=== PATIENT | male | born 1990 | race Caucasian/White ===

== ENCOUNTER 2017-05-02 22:50 | Emergency (ER) | payer SELFPAY ==
[~2017-05-02] VITALS: Ht 190.5 cm; Wt 80.0 kg
[~2017-05-02 22:50] MED LIST: ALPR1CON PO; METH10TA PO
[2017-05-02 22:59] VITALS: BP 167/93; PULSE 103; RESP 18; TEMP 97.8; O2SAT 99
--- NOTE | 2017-05-02 23:03 | PD ---
HPI Chief Complaint: Psychiatric Symptoms Time Seen by Provider: 22:58 Travel History International Travel<30 days: No Contact w/Intl Traveler<30days: No Traveled to known affect area: No History of Present Illness HPI PATIENT WAS AT STORE APPARENTLY STATING THAT HE USED PCP, POLICE WAS CALLED, ONCE POLICE ARRIVED HE WAS BROUGHT IN WITH SUSPICION OF UNDER THE INFLUENCE, HE WAS NOT ABLE TO ANSWER QUESTIONS CORRECTLY AND OFFICER PLACED PT UNDER LEE ACT. PFSH Past Medical History Diminished Hearing: No Musculoskeletal: Yes (HERNIATED DISCS) Past Surgical History Tonsillectomy: Yes (ADNOIDS) Social History Alcohol Use: Yes (2 BEERS PER MONTH MAYBE) Tobacco Use: Yes (ONE PACK PER DAY) Substance Use: Yes ([facility]; Dil[facility]id [facility]) Allergies-Medications (Allergen,Severity, Reaction): Coded Allergies: Penicillin (Verified Allergy, Severe, 05/02/17) Amoxicillin (Unverified Allergy, Mild, 05/02/17) Reported Meds & Prescriptions Reported Meds & Active Scripts Active Reported Wellbutrin Xl 24 HR (Bupropion HCl) 150 Mg Tab 150 Mg PO DAILY Alprazolam 2 Mg Tab 2 Mg PO Q8H PRN Remeron (Mirtazapine) 30 Mg Tab 30 Mg PO HS Review of Systems ROS Limitations: Intoxication Except as stated in HPI: all other systems reviewed are Neg Physical Exam Exam Limitations: Intoxication Narrative GENERAL: SKIN: Warm and dry. HEAD: Atraumatic. Normocephalic. EYES: Pupils equal and round. No scleral icterus. No injection or drainage. ENT: No nasal bleeding or discharge. Mucous membranes pink and moist. NECK: Trachea midline. No JVD. CARDIOVASCULAR: Regular rate and rhythm. RESPIRATORY: No accessory muscle use. Clear to auscultation. Breath sounds equal bilaterally. GASTROINTESTINAL: Abdomen soft, non-tender, nondistended. Hepatic and splenic margins not palpable. MUSCULOSKELETAL: Extremities without clubbing, cyanosis, or edema. No obvious deformities. NEUROLOGICAL: Awake and alert. No obvious cranial nerve deficits. Motor grossly within normal limits. Five out of 5 muscle strength in the arms and legs. Normal speech. GCS 14/15, PT ADMITTED TO USING PCP, STATED THAT HE FEELS BETTER NOW. PSYCHIATRIC: Appropriate mood and affect; insight and judgment normal. Data Data Last Documented VS Vital Signs Date Time Temp Pulse Resp B/P Pulse Ox O2 Delivery O2 Flow Rate FiO2 05/02/17 22:59 97.8 103 18 167/93 99 Room Air Orders Complete Blood Count With Diff (05/02/17 22:58) Basic Metabolic Panel (Bmp) (05/02/17 22:58) Ct Brain W/O Iv Contrast(Rout) (05/02/17 22:58) Drug Screen, Random Urine (05/02/17 22:58) Alcohol (Ethanol) (05/02/17 22:58) Salicylates (Aspirin) (05/02/17 22:58) Tylenol (Acetaminophen) (05/02/17 22:58) Labs Laboratory Tests Test 05/02/17 23:04 White Blood Count 14.1 TH/MM3 Red Blood Count 4.43 MIL/MM3 Hemoglobin 12.9 GM/DL Hematocrit 39.6 % Mean Corpuscular Volume 89.6 FL Mean Corpuscular Hemoglobin 29.1 PG Mean Corpuscular Hemoglobin 32.5 % Concent Red Cell Distribution Width 12.7 % Platelet Count 236 TH/MM3 Mean Platelet Volume 8.6 FL Neutrophils (%) (Auto) 57.1 % Lymphocytes (%) (Auto) 32.6 % Monocytes (%) (Auto) 7.9 % Eosinophils (%) (Auto) 1.9 % Basophils (%) (Auto) 0.5 % Neutrophils # (Auto) 8.1 TH/MM3 Lymphocytes # (Auto) 4.6 TH/MM3 Monocytes # (Auto) 1.1 TH/MM3 Eosinophils # (Auto) 0.3 TH/MM3 Basophils # (Auto) 0.1 TH/MM3 CBC Comment DIFF FINAL Differential Comment Sodium Level 144 MEQ/L Potassium Level 3.6 MEQ/L Chloride Level 111 MEQ/L Carbon Dioxide Level 26.1 MEQ/L Anion Gap 7 MEQ/L Blood Urea Nitrogen 11 MG/DL Creatinine 1.05 MG/DL Estimat Glomerular Filtration 84 ML/MIN Rate Random Glucose 86 MG/DL Calcium Level 9.1 MG/DL Salicylates Level LESS THAN 1.7 MG/DL Acetaminophen Level LESS THAN 2.0 MCG/ML Ethyl Alcohol Level LESS THAN 3 MG/DL MDM Medical Decision Making Medical Screen Exam Complete: Yes Emergency Medical Condition: Yes Medical Record Reviewed: Yes Differential Diagnosis INTOXICATION VS ICH VS ELECTROLYTE ABNL CAUSING AMS/CONFUSION Narrative Course PATIENT'S LABS WNL, CT HEAD SHOWS CHRONIC SINUSITIS WHICH DOESN'T REQUIRED ABX, PATIENT IS MEDICALLY CLEARED FOR PSYCH Diagnosis Primary Impression: MEDICALLY CLEARED LEE ACT Condition: Stable Noe Johnson MD May 02, 2017 23:03
[2017-05-02] MEDS ORDERED: REME30TA PO ×2 (23:06)
[2017-05-02] MEDS ORDERED: ALPR2TAB3 PO ×2 (23:08)
[2017-05-02] MEDS ORDERED: BUPR150XL PO ×2 (23:09)
[2017-05-02 23:16] LABS: AUTOMATED NEUTROPHIL # 8.1 TH/MM3 (1.8-7.7); BASOPHIL # 0.1 TH/MM3 (0-0.2); BASOPHIL % 0.5 % (0.0-2.0); EOSINOPHIL # 0.3 TH/MM3 (0-0.4); EOSINOPHIL % 1.9 % (0.0-4.0); HEMATOCRIT 39.6 % (39.0-51.0); HEMO FLAGS DIFF FINAL; LYMPH % 32.6 % (9.0-44.0); LYMPHOCYTE # 4.6 TH/MM3 (1.0-4.8); MEAN CELL VOLUME 89.6 FL (80.0-100.0); MEAN CORPUSCULAR HEMOGLOBIN 29.1 PG (27.0-34.0); MEAN CORPUSCULAR HGB CONC 32.5 % (32.0-36.0); MONO % 7.9 % (0.0-8.0); NEUT % 57.1 % (16.0-70.0); PLATELET COUNT 236 TH/MM3 (150-450); RED BLOOD COUNT 4.43 MIL/MM3 (4.50-5.90); RED CELL DISTRIBUTION WIDTH 12.7 % (11.6-17.2); WHITE BLOOD COUNT 14.1 TH/MM3 (4.0-11.0)
[2017-05-02 23:44] LABS: ACETAMINOPHEN LESS THAN 2.0 MCG/ML (10.0-30.0); ANION GAP 7 MEQ/L (5-15); BICARBONATE 26.1 MEQ/L (21.0-32.0); BLOOD UREA NITROGEN 11 MG/DL (7-18); CHLORIDE 111 MEQ/L (98-107); GLOMERULAR FILTRATION RATE 84 ML/MIN (>89); POTASSIUM 3.6 MEQ/L (3.5-5.1); SODIUM (NA) 144 MEQ/L (136-145)
--- NOTE | 2017-05-03 00:01 | RADRPT ---
EXAM DATE/TIME: 05/02/2017 23:47 [facility] COMPARISON: CT BRAIN W/O CONTRAST, September 26, 2013, 20:39. INDICATIONS : Altered mental status. RADIATION DOSE: 47.39 CTDIvol (mGy) MEDICAL HISTORY : None SURGICAL HISTORY : None. ENCOUNTER: Initial ACUITY: 1 day PAIN SCALE: 0/10 LOCATION: cranial TECHNIQUE: Multiple contiguous axial images were obtained of the head. Using automated exposure control and adj ustment of the mA and/or kV according to patient size, radiation dose was kept as low as reasonably a chievable to obtain optimal diagnostic quality images. FINDINGS: There is no evidence for intracranial hemorrhage, mass effect, mass lesions, edema, or extra-axial fl uid collections. The visualized bony structures appear intact. The ventricles are normal size for t he patient's age. There are no signs of acute infarction for technique. There is moderate opacificat ion of the right sphenoid sinus, left frontal sinus and to a lesser degree the eithmoid air cells. CONCLUSION: Chronic sinusitis worse since the prior exam. Marleen Crocker MD on May 02, 2017 at 23:58 Board Certified Radiologist. This report was verified electronically.
[2017-05-03] MEDS ORDERED: MIRTAZAPINE ODT 30 MG TAB PO ONE (01:15)
[2017-05-03 01:16] LABS: AMPHETAMINE, URINE NEG (NEG); BARBITURATES, URINE NEG (NEG); COCAINE, URINE NEG (NEG)
[2017-05-03 01:39] VITALS: BP 139/90; PULSE 84; RESP 18; O2SAT 99
[2017-05-03] MEDS ORDERED: ALPRAZolam 1 MG TAB PO ONE (02:30)
[2017-05-03 07:20] VITALS: BP 102/79; PULSE 92; RESP 16; O2SAT 100
[2017-05-03] MEDS ORDERED: LORazepam 1 MG TAB PO ONE (08:15)
--- NOTE | 2017-05-03 11:05 | PD ---
History of Present Illness Chief Complaint: Psychiatric Symptoms Time Seen by Provider: 10:00 Travel History International Travel<30 Days: No Contact w/Intl Traveler<30days: No Known affected area: No Legal Status Legal Status: Ang Act Ang Act Signed By: History of Present Illness: 27-year-old male brought in under a Ang act for confused thinking and statements that he used PCP last night. Apparently the patient walked into a store and told the store director that he had used PCP. When law enforcement were called, the patient was found to be very confused and unable to answer questions. When the patient was brought to the emergency department last night he was still felt to be confused and a poor historian. This morning the patient is improved. He is now denying the use of PCP. This facility does not have the toxicology screening available to test for PCP while history is in the emergency department. He does admit to being on a methadone maintenance program and acknowledges if he uses other drugs, he will be kicked off the methadone program. He does have a history of substance abuse. He continues to be hyperverbal but is not pressured and is certainly interruptible. He is alert and oriented to person place and day. He was able to report April 2017 but was slightly off on the date. He understands his situation and has been calling his mother and his girlfriend for assistance. He acknowledges his mother does not wish to provide any assistance to him. Apparently his recent behavior has caused his mother and his girlfriend concern , due to probable drug abuse. At this time, the patient is denying suicidal or homicidal ideation, plan or intent. He denies psychotic symptoms. He is grossly intact with regard to cognition. He is verbally dianna for safety. PFSH Past Medical History Diminished Hearing: No Musculoskeletal: Yes (HERNIATED DISCS) Immunizations Current: Yes Tetanus Vaccination: Unknown Influenza Vaccination: No Past Surgical History Tonsillectomy: Yes (ADENOIDS ONLY) Psychiatric History Psychiatric History Hx Psychiatric Treatment: Patient denies any psychiatric tx hx. History of Inpatient Treatment: No Guns or firearms in home: No Social History Hx Alcohol Use: Yes (RARE) Hx Tobacco Use: Yes (ONE PACK PER DAY) Hx Substance Use: Yes ([facility]; Dilaudid IV) Substance Use Type: Alcohol, Marijuana, Amphetamines-Stimulants, Nicotine/ Cigarettes, Benzos (Valium,Xanax), Cocaine, Synth Opiates-Pain Pills Hx of Substance Use Treatment: No Allergies-Medications (Allergen,Severity, Reaction): Coded Allergies: Penicillin (Verified Allergy, Severe, 05/02/17) Amoxicillin (Unverified Allergy, Mild, 05/02/17) Reported Meds & Prescriptions Reported Meds & Active Scripts Active Reported Wellbutrin Xl 24 HR (Bupropion HCl) 150 Mg Tab 150 Mg PO DAILY Alprazolam 2 Mg Tab 2 Mg PO Q8H PRN Remeron (Mirtazapine) 30 Mg Tab 30 Mg PO HS Review of Systems Except as stated in HPI: all other systems reviewed are Neg Exam Alert: Yes [place]: Person, Place, Situation Mood: Calm Affect: Appropriate Speech: Clear Eye Contact: Normal Memory Intact: Immediate, Recent, Remote Insight/Judgement Adequate MDM Medical Decision Making Medical Record Reviewed: Yes Assessment/Plan 27-year-old male with significant history of substance abuse, currently in methadone maintenance program, likely to have used PCP as he admitted last night. Although he is currently denying the use of PCP, it is obvious he will lose his position in the methadone clinic if he is found to be positive for that drug. This facility does not have the technology to ascertain this fact at this time. However, we are not a licensed detox or rehabilitation facility and the patient's intoxication has obviously dissipated. His cognition, while not perfect, is certainly adequate. He is verbally dianna for safety. He denies suicidal or homicidal ideation, plan or intent. In this physician's opinion, he does not meet criteria for inpatient psychiatric hospitalization. Orders Complete Blood Count With Diff (05/02/17 22:58) Basic Metabolic Panel (Bmp) (05/02/17 22:58) Ct Brain W/O Iv Contrast(Rout) (05/02/17 22:58) Drug Screen, Random Urine (05/02/17 22:58) Alcohol (Ethanol) (05/02/17 22:58) Salicylates (Aspirin) (05/02/17 22:58) Tylenol (Acetaminophen) (05/02/17 22:58) Mirtazapine Odt (Remeron Soltab Odt) (05/03/17 01:15) Alprazolam (Xanax) (05/03/17 02:30) Diet Regular Basic (05/03/17 Breakfast) Psych Screen (05/03/17 07:22) Lorazepam (Ativan) (05/03/17 08:15) Results Vital Signs Date Time Temp Pulse Resp B/P Pulse Ox O2 Delivery O2 Flow Rate FiO2 05/03/17 07:20 92 16 102/79 100 Room Air 05/03/17 01:39 84 18 139/90 99 Room Air 05/02/17 22:59 97.8 103 18 167/93 99 Room Air Laboratory Tests Test 05/02/17 05/03/17 23:04 00:26 White Blood Count 14.1 Red Blood Count 4.43 Hemoglobin 12.9 Hematocrit 39.6 Mean Corpuscular Volume 89.6 Mean Corpuscular Hemoglobin 29.1 Mean Corpuscular Hemoglobin 32.5 Concent Red Cell Distribution Width 12.7 Platelet Count 236 Mean Platelet Volume 8.6 Neutrophils (%) (Auto) 57.1 Lymphocytes (%) (Auto) 32.6 Monocytes (%) (Auto) 7.9 Eosinophils (%) (Auto) 1.9 Basophils (%) (Auto) 0.5 Neutrophils # (Auto) 8.1 Lymphocytes # (Auto) 4.6 Monocytes # (Auto) 1.1 Eosinophils # (Auto) 0.3 Basophils # (Auto) 0.1 CBC Comment DIFF FINAL Differential Comment Sodium Level 144 Potassium Level 3.6 Chloride Level 111 Carbon Dioxide Level 26.1 Anion Gap 7 Blood Urea Nitrogen 11 Creatinine 1.05 Estimat Glomerular Filtration 84 Rate Random Glucose 86 Calcium Level 9.1 Salicylates Level LESS THAN 1.7 Acetaminophen Level LESS THAN 2.0 Ethyl Alcohol Level LESS THAN 3 Urine Opiates Screen NEG Urine Barbiturates Screen NEG Urine Amphetamines Screen NEG Urine Benzodiazepines Screen POS Urine Cocaine Screen NEG Urine Cannabinoids Screen POS Diagnosis Primary Impression: Adjustment disorder with mixed disturbance of emotions and conduct Additional Impression: Substance abuse Departure Forms: Tests/Procedures Patient Instructions: General Instructions Disposition: 01 DISCHARGE HOME Condition: Stable Problem Qualifiers Darinel Buchanan MD May 03, 2017 11:04
== END 2017-05-03 10:31 | disposition home or self-care (01) ==
LOC: NEPD 22:50
DX: F43.25 Adjustment disorder with mixed disturbance of emotions and conduct (principal); F19.10 Other psychoactive substance abuse, uncomplicated; F17.210 Nicotine dependence, cigarettes, uncomplicated
CPT/HCPCS: 70450; 80048; 80307; 85025; 99285

== ENCOUNTER 2017-05-09 08:26 | Inpatient (IN) | payer SELFPAY ==
[~2017-05-09] VITALS: Ht 188 cm; Wt 116.2 kg
[~2017-05-09 08:26] MED LIST changes: +ALPR2TAB3 PO; +BUPR150XL PO; +REME30TA PO
[2017-05-09 08:33] VITALS: BP 153/85; PULSE 99; RESP 16; TEMP 97.8; O2SAT 95
--- NOTE | 2017-05-09 08:47 | PD ---
HPI Chief Complaint: Psychiatric Symptoms Time Seen by Provider: 08:47 Travel History International Travel<30 days: No Contact w/Intl Traveler<30days: No Traveled to known affect area: No History of Present Illness HPI This is a 27-year-old male with history of psychosis and substance abuse, presents today with acute psychosis. The patient states he's been taking his medications however is very histrionic with delusional thought process. The patient has hyper baptism thoughts. He is very tangential and difficult to eat a clear story. He denies any suicidal ideation. He states he was just recently here under Ang act. When asked what for, he could not elaborate further. PFSH Past Medical History Diminished Hearing: No Musculoskeletal: Yes (HERNIATED DISCS) Immunizations Current: Yes Past Surgical History Tonsillectomy: Yes (ADENOIDS ONLY) Social History Alcohol Use: Yes (RARE) Tobacco Use: Yes (ONE PACK PER DAY) Substance Use: Yes ([facility]; Dilaudid IV) Allergies-Medications (Allergen,Severity, Reaction): Coded Allergies: Penicillin (Verified Allergy, Severe, 05/02/17) Amoxicillin (Unverified Allergy, Mild, 05/02/17) Reported Meds & Prescriptions Reported Meds & Active Scripts Active Reported Wellbutrin Xl 24 HR (Bupropion HCl) 150 Mg Tab 150 Mg PO DAILY Alprazolam 2 Mg Tab 2 Mg PO Q8H PRN Remeron (Mirtazapine) 30 Mg Tab 30 Mg PO HS Review of Systems ROS Limitations: Clinical Condition, Psychotic Except as stated in HPI: all other systems reviewed are Neg Physical Exam Narrative GENERAL: Well-nourished, well-developed patient, who appears acutely psychotic. SKIN: Focused skin assessment warm/dry. HEAD: Normocephalic/atraumatic. EYES: No scleral icterus. No injection or drainage. NECK: Supple, trachea midline. CARDIOVASCULAR: Regular rate and rhythm without murmurs, gallops, or rubs. RESPIRATORY: Breath sounds equal bilaterally. No accessory muscle use. GASTROINTESTINAL: Abdomen soft, non-tender, nondistended. MUSCULOSKELETAL: Patient has roof tar on his bilateral lower extremities and upper extremity is. There appears to be no significant flores. NEUROLOGICAL: Awake and alert and psychotic. Cranial nerves II through XII intact. Motor grossly within normal limits. Five out of 5 muscle strength in all muscle groups. Normal speech. PSYCHIATRIC: Positive delusional thought processes. Appears psychotic. Data Data Last Documented VS Vital Signs Date Time Temp Pulse Resp B/P Pulse Ox O2 Delivery O2 Flow Rate FiO2 05/09/17 08:33 97.8 99 16 153/85 95 Orders Complete Blood Count With Diff (05/09/17 08:47) Comprehensive Metabolic Panel (05/09/17 08:47) Psych Screen (05/09/17 08:47) Drug Screen, Random Urine (05/09/17 08:47) Potassium Chloride Eff (K-Lyte Cl Eff) (05/09/17 10:00) Labs Laboratory Tests Test 05/09/17 05/09/17 08:50 10:10 White Blood Count 10.2 TH/MM3 Red Blood Count 4.13 MIL/MM3 Hemoglobin 12.4 GM/DL Hematocrit 36.4 % Mean Corpuscular Volume 88.2 FL Mean Corpuscular Hemoglobin 29.9 PG Mean Corpuscular Hemoglobin 33.9 % Concent Red Cell Distribution Width 12.7 % Platelet Count 224 TH/MM3 Mean Platelet Volume 8.9 FL Neutrophils (%) (Auto) 62.1 % Lymphocytes (%) (Auto) 28.3 % Monocytes (%) (Auto) 7.2 % Eosinophils (%) (Auto) 2.2 % Basophils (%) (Auto) 0.2 % Neutrophils # (Auto) 6.3 TH/MM3 Lymphocytes # (Auto) 2.9 TH/MM3 Monocytes # (Auto) 0.7 TH/MM3 Eosinophils # (Auto) 0.2 TH/MM3 Basophils # (Auto) 0.0 TH/MM3 CBC Comment DIFF FINAL Differential Comment Sodium Level 138 MEQ/L Potassium Level 2.9 MEQ/L Chloride Level 101 MEQ/L Carbon Dioxide Level 23.9 MEQ/L Anion Gap 13 MEQ/L Blood Urea Nitrogen 9 MG/DL Creatinine 0.99 MG/DL Estimat Glomerular Filtration 89 ML/MIN Rate Random Glucose 108 MG/DL Calcium Level 9.1 MG/DL Total Bilirubin 0.9 MG/DL Aspartate Amino Transf 81 U/L (AST/SGOT) Alanine Aminotransferase 71 U/L (ALT/SGPT) Alkaline Phosphatase 53 U/L Total Protein 7.3 GM/DL Albumin 3.9 GM/DL Urine Opiates Screen NEG Urine Barbiturates Screen NEG Urine Amphetamines Screen NEG Urine Benzodiazepines Screen POS Urine Cocaine Screen NEG Urine Cannabinoids Screen POS [facility] Medical Decision Making Medical Screen Exam Complete: Yes Emergency Medical Condition: Yes Differential Diagnosis Acute psychosis versus substance induced mood disorder versus medication noncompliance Narrative Course 27-year-old male who has history of psychosis, presents under Ang act. The patient presents with acute psychotic episode. The patient is not violent however he is very hyper baptism and has tangential thoughts. The patient was noted to have tarry all over his extremities. We have attempted to remove the tire using Shur-Clens and mayonnaise. He does have some excoriations from the removal. He was also noted to have a potassium of 2.9. He's been given 25 mEq by mouth times one dose. He'll be medically cleared for psychiatric evaluation. Diagnosis Primary Impression: Psychosis Additional Impressions: Hypokalemia medically clear Mario Rojas MD May 09, 2017 08:47 medically clear Mario Rojas MD May 09, 2017 08:47
[2017-05-09 09:12] LABS: AUTOMATED NEUTROPHIL # 6.3 TH/MM3 (1.8-7.7); BASOPHIL % 0.2 % (0.0-2.0); EOSINOPHIL # 0.2 TH/MM3 (0-0.4); EOSINOPHIL % 2.2 % (0.0-4.0); HEMATOCRIT 36.4 % (39.0-51.0); HEMO FLAGS DIFF FINAL; LYMPH % 28.3 % (9.0-44.0); LYMPHOCYTE # 2.9 TH/MM3 (1.0-4.8); MEAN CELL VOLUME 88.2 FL (80.0-100.0); MEAN CORPUSCULAR HEMOGLOBIN 29.9 PG (27.0-34.0); MEAN CORPUSCULAR HGB CONC 33.9 % (32.0-36.0); MONO % 7.2 % (0.0-8.0); NEUT % 62.1 % (16.0-70.0); PLATELET COUNT 224 TH/MM3 (150-450); RED BLOOD COUNT 4.13 MIL/MM3 (4.50-5.90); RED CELL DISTRIBUTION WIDTH 12.7 % (11.6-17.2); WHITE BLOOD COUNT 10.2 TH/MM3 (4.0-11.0)
[2017-05-09 09:39] LABS: ALKALINE PHOSPHATASE 53 U/L (45-117); ALT (GPT) 71 U/L (12-78); ANION GAP 13 MEQ/L (5-15); AST (GOT) 81 U/L (15-37); BICARBONATE 23.9 MEQ/L (21.0-32.0); BLOOD UREA NITROGEN 9 MG/DL (7-18); CHLORIDE 101 MEQ/L (98-107); GLOMERULAR FILTRATION RATE 89 ML/MIN (>89); SODIUM (NA) 138 MEQ/L (136-145); TOTAL BILIRUBIN ADULT 0.9 MG/DL (0.2-1.0)
[2017-05-09 09:53] LABS: POTASSIUM 2.9 MEQ/L (3.5-5.1)
[2017-05-09] MEDS ORDERED: POTASSIUM CHLORIDE 25 MEQ EFFERVESCENT TAB PO ONE (10:00)
[2017-05-09 10:38] LABS: AMPHETAMINE, URINE NEG (NEG); BARBITURATES, URINE NEG (NEG); COCAINE, URINE NEG (NEG)
[2017-05-09 14:03] VITALS: BP 157/84; PULSE 68; RESP 18; O2SAT 99
[2017-05-09] MEDS ORDERED: LORazepam 2 MG/ML VIAL ONE (14:46)
[2017-05-09] MEDS ORDERED: HALOPERIDOL LACTATE 5 MG/ML AMP ONE (14:47)
[2017-05-09 18:20] VITALS: BP 130/60; PULSE 60; RESP 18; TEMP 96.9
[2017-05-09] MEDS ORDERED: diphenhydrAMINE HCL 50 MG/ML VIAL IM PRN (20:00)
[2017-05-09] MEDS ORDERED: LORazepam 2 MG/ML VIAL IM PRN (20:00)
[2017-05-09] MEDS ORDERED: ACETAMINOPHEN 325 MG TAB PO PRN (20:00)
[2017-05-09] MEDS ORDERED: LORazepam 1 MG TAB PO PRN (20:00)
[2017-05-09] MEDS ORDERED: MAGNESIUM HYDROXIDE SUSP 30 ML CUP PO PRN (20:00)
[2017-05-09] MEDS ORDERED: ALUMINUM/MAGNESIUM/SIMETH 30 ML CUP PO PRN (20:00)
[2017-05-09] MEDS: REMOVE OLD NICOTINE PATCH T-DERMAL SCH (21:00)
[2017-05-10] MEDS: hydrOXYzine HCL 50 MG TAB PO PRN ×2 (05:12→21:50)
[2017-05-10] MEDS: diphenhydrAMINE HCL 50 MG CAP PO PRN ×2 (05:12→21:49)
[2017-05-10 06:14] VITALS: BP 162/87; PULSE 83; RESP 18; TEMP 96.6; O2SAT 100
[2017-05-10] MEDS ORDERED: LORazepam 2 MG/ML VIAL IV PUSH PRN ×4 (08:30)
[2017-05-10] MEDS ORDERED: FLUMAZENIL 0.5 MG/5 ML VIAL IV PUSH PRN (08:30)
[2017-05-10] MEDS ORDERED: LORazepam 1 MG TAB PO PRN (08:30)
[2017-05-10] MEDS: LORazepam 2 MG TAB PO PRN ×2 (08:40→16:40)
--- NOTE | 2017-05-10 09:01 | HHI.HP ---
Provisional Diagnosis Admission Date May 09, 2017 at 18:28 Patterson I. 1. Brief psychotic disorder, strongly suspect benzodiazepine withdrawal with psychosis 2. Polysubstance abuse Patterson II. Deferred Patterson V. GAF is 30 presently Certification of Person's Competence To Provide Express and Informed Consent I have personally examined Fernie ByrdJr , a person being served at [facility] on, May 10, 2017 08:48. Express and informed consent means consent voluntarily given in writing, by a competent person, after sufficient explanation and disclosure of the subject matter involved to enable the person to make a knowing and willful decision without any element of force, fraud, deceit, duress, or other form of constraint or coercion. This person is 18 years of age or older, is not now known to be incompetent to consent to treatment with a guardian advocate, and does not have a health care surrogate or proxy currently making medical treatment decisions. I have found this person to be one of the following: [] Competent to provide express and informed consent, as defined above, for voluntary admission to this facility and is competent to provide express and informed consent for treatment. He/she has the consistent capacity to make well reasoned, willful, and knowing decisions concerning his or her medical or mental health treatment. The person fully and consistently understands the purpose of the admission for examination/placement and is fully capable of personally exercising all rights assured under [place] [] Incompetent to provide express and informed consent to voluntary admission, and this is incompetent to provide express and informed consent to treatment. The person must be transferred to involuntary status and a petition for a guardian advocate filed with the Circuit Court. [x] Refusing to provide express and informed consent to voluntary admission but is competent to provide express and informed consent for treatment. The person must be discharged or transferred to involuntary status. Form shall be completed within 24 hours of a person's arrival at the receiving facility and filed in the clinical record of each person: 1. Admitted on a voluntary basis 2. Permitted to provide express and informed consent to his/her own treatment 3. Allowed to transfer from involuntary to voluntary status 4. Prior to permitting a person to consent to his or her own treatment after having been previously found incompetent to consent to treatment. History of Present Illness Capacity: Has Capacity HPI Mr. Byrd is a 27-year-old male with a reported history of panic/ anxiety and a chart history of substance use disorder who presents under a Ang act from [place] [employer] alleging that the patient is delusional and hallucinating. I also see what appears to be a Marchman act on the chart initiated by his mother and grandmother with a court date of 05/16. Reviewing the electronic medical record, I see that the patient was evaluated by Dr. Buchanan one week ago and determined to be chiefly substance use disordered at that time. Patient seen and examined with nurse. Chart reviewed. Case discussed with nursing staff on the inpatient unit. On my examination today, the patient presents with rambling speech and circumstantial thought processes. He was apparently quite religiously preoccupied overnight but has been medicated with benzodiazepines and antipsychotics since that time. He has stigmata of benzodiazepine withdrawal. He says initially that he has been without benzodiazepines for 3 days since his girlfriend allegedly stole his medications but then admits that buying smaller doses of benzodiazepines off the street. He tends to minimize the circumstances of his presentation here. He denies issues with mood and says that he is just "trying to keep it together." No depressive or hypomanic/manic symptoms noted. He denies audiovisual hallucinations but does appear to be a little internally preoccupied. No александр delusional material. Denies suicidal or homicidal ideation at this time. Remainder of the psychiatric ROS is negative. Given the patient's degree of psychiatric impairment I have placed a call to his mother. She notes that the patient has a history of substance use and was in the evident clinic up until a week ago. He also has been receiving large doses of benzodiazepines from his outpatient psychiatrist. Mother notes that the patient has been tearing up the house recently for unclear reasons and has caused $10,000 worth of damage. He has no history of psychotic illness per mother. Past psychiatric history: The patient reports a history of panic disorder and anxiety. He is treated by Dr. Dwyer. He says that he has not been psychiatrically admitted in over 5 years. He denies a history of suicide attempts. Family history: The patient alleges that his mother is an alcoholic. Chemical dependency history: The patient reports that he is using 6 mg of Xanax daily. He also smokes cannabis and has a history of synthetic cannabinoid use. As noted above, the patient reports that his last use of benzodiazepines was about 3 days ago although he has been using smaller quantities since then. He was also recently in a methadone maintenance program. E-FORCSE report reviewed , and I note patient has been receiving regular Rx for Xanax 6mg/day. Social history: Patient reports that he lives in his grandmother's home. He is single with no children. 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 He denies a history of service. He endorses a history of drug crime. No reported access to guns or firearms. Review of Systems ROS Limitations: Psychotic, Poor Historian Except as stated in HPI: all other systems reviewed are Neg Past Psych History Psychological trauma history No reported trauma history Violence risk - others (6 mos) Suspect lower imminent risk from mental illness as defined under Ang act. Denying homicidal ideation presently. Substance use is a chronic risk factor. Violence risk - self (6 mos) Suspect lower imminent risk from mental illness as defined under Ang act. Denying suicidal ideation presently. Substance use is a chronic risk factor. Substance Abuse History Drugs/Alcohol past 12 months See above Past Family Social History Coded Allergies: Penicillin (Verified Allergy, Severe, 05/02/17) Amoxicillin (Unverified Allergy, Mild, 05/02/17) Past Medical History See electronic medical record Reported Medications Bupropion HCl ER 24 HR (Wellbutrin Xl 24 HR)150 Mg [id number] Mg PO DAILY Ref 0 05/02/17 Alprazolam 2 Mg Tab2 Mg PO Q8H PRN (ANXIETY) 05/02/17 Mirtazapine (Remeron)30 Mg Tab30 Mg PO HS #30 TAB Ref 0 05/02/17 Current Medications Medications (Trade) Dose Ordered Sig/Negrita Route Start Time Stop Time Status Last Admin (Atarax) 50 mg Q6H PRN PO 05/09/17 20:00 05/10/17 05:12 (Benadryl) 50 mg Q6H PRN PO 05/09/17 20:00 05/10/17 05:12 (Benadryl Inj) 50 mg Q6H PRN IM 05/09/17 20:00 (Tylenol) 650 mg Q4H PRN PO 05/09/17 20:00 (Milk Of Magnesia Liq) 30 ml DAILY PRN PO 05/09/17 20:00 (Mag-Al Plus Susp Liq) 30 ml Q6H PRN PO 05/09/17 20:00 (Habitrol 21 Mg Patch.24 Hr) 1 patch DAILY T-DERMAL 05/10/17 09:00 Miscellaneous Information 1 HS T-DERMAL 05/09/17 21:00 (Romazicon Inj) 0.2 mg Q1M PRN IV PUSH 05/10/17 08:30 (Ativan) 1 mg Q4H PRN PO 05/10/17 08:30 (Ativan Inj) 1 mg Q4H PRN IV PUSH 05/10/17 08:30 (Ativan) 2 mg Q2H PRN PO 05/10/17 08:30 (Ativan Inj) 2 mg Q2H PRN IV PUSH 05/10/17 08:30 (Ativan Inj) 2 mg Q1H PRN IV PUSH 05/10/17 08:30 (Ativan Inj) 2 mg Q15M PRN IV PUSH 05/10/17 08:30 Family History See above Social History See above Patient's Strengths (min. 2) In a monitored setting. Verbally fluent. Physical Exam Physical exam completed by ED provider. On my exam today, patient presents as diaphoretic with hand tremor and hyperreflexia. Hypertension noted. No other motoric abnormalities noted. Labs and vital signs reviewed: Vital Signs Vital Signs Date Time Temp Pulse Resp B/P Pulse Ox O2 Delivery O2 Flow Rate FiO2 05/10/17 06:14 96.6 83 18 162/87 100 05/09/17 14:03 Room Air I/O 05/09/17 05/09/17 05/10/17 08:00 16:00 00:00 Output Total 100 ml Balance -100 ml Lab Results Item Value Date Time White Blood Count 10.2 TH/MM3 05/09/17 0850 Hemoglobin 12.4 GM/DL L 05/09/17 0850 Platelet Count 224 TH/MM3 05/09/17 0850 Sodium Level 138 MEQ/L 05/09/17 0850 Potassium Level 2.9 MEQ/L *L 05/09/17 0850 Chloride Level 101 MEQ/L 05/09/17 0850 Carbon Dioxide Level 23.9 MEQ/L 05/09/17 0850 Blood Urea Nitrogen 9 MG/DL 05/09/17 0850 Creatinine 0.99 MG/DL 05/09/17 0850 Aspartate Amino Transf (AST/SGOT) 81 U/L H 05/09/17 0850 Alanine Aminotransferase (ALT/SGPT) 71 U/L 05/09/17 0850 Alkaline Phosphatase 53 U/L 05/09/17 0850 Urine Benzodiazepines Screen POS H 05/09/17 1010 Urine Cannabinoids Screen POS H 05/09/17 1010 Hypokalemia has been repleted and a repeat potassium level is presently in process. Mental Status Examination Patient is in hospital gown. He is somewhat disheveled and has numerous tattoos. He does appear to be maintaining basic hygiene. He is awake and alert and oriented to person, place and date. His registration is 3 out of 3 and his recall is 3 out of 3 at 5 minutes. He is able to do serial sevens. Motor exam as above. Speech is within normal limits for rate, tone and volume. Language and fund of knowledge seem average. Focus and concentration impaired. Memory grossly intact on clinical exam. Mood is fair and affect is blunted. Thought process circumstantial. Associations somewhat loose. No александр delusional material today although the patient was apparently religiously preoccupied overnight. Denies audiovisual hallucinations but does appear somewhat internally preoccupied. Denies suicidal or homicidal ideation. Insight and judgment are poor. Assessment & Plan Problem List: (1) Psychosis ICD Code: F29 (2) Polysubstance abuse ICD Code: F19.10 Assessment & Plan This is a 27-year-old male with psychiatric history as detailed above who presents under a Ang act. Patient presented initially as quite psychotic although he has improved overnight with antipsychotics, and I suspect more likely the benzodiazepines that he received. He presently has stigmata of benzodiazepine withdrawal and reports last use of benzodiazepines at full dose was approximately 3 days ago although he has been using smaller doses reportedly since then. He has no known history of psychotic illness. Concern is for benzodiazepine withdrawal with psychosis or perhaps a drug induced psychotic disorder. Primary psychotic illness is lower in the differential. I will plan to retain the patient on the unit for the purpose of transferring him to the addiction receiving facility for further management. Admitted inpatient. Patient is presently under a Ang act. I have initiated a physician's certificate for emergency admission to the addiction receiving facility and notified the charge nurse to arrange the transfer. Follow-up BMP. Initiate Klonopin taper with CIWA with Ativan for any breakthrough withdrawal. Seizure and fall precautions. Atarax as needed for anxiety, Benadryl as needed for EPS. Vitals every 4 hours. Counselor to see. Disposition planning. Estimated length of stay: Transfer to addiction receiving facility once a bed is available. Discharge Planning Hopeful for transfer to addiction receiving facility [facility]. Request HC Surrog/Guard Advoc?: No Problem Qualifiers (1) Psychosis: Qualified Code: F23 - Brief psychotic disorder Tahir Ness MD May 10, 2017 09:01
[2017-05-10] MEDS ORDERED: PILL SPLITTER OTHER PRN (09:45)
[2017-05-10 12:10] VITALS: BP 163/74; PULSE 83; RESP 20; TEMP 97.9; O2SAT 100
[2017-05-10 13:10] LABS: ANION GAP 9 MEQ/L (5-15); AST (GOT) 91 U/L (15-37); BICARBONATE 29.5 MEQ/L (21.0-32.0); BLOOD UREA NITROGEN 5 MG/DL (7-18); CHLORIDE 104 MEQ/L (98-107); GLOMERULAR FILTRATION RATE 127 ML/MIN (>89); POTASSIUM 3.1 MEQ/L (3.5-5.1); SODIUM (NA) 142 MEQ/L (136-145)
[2017-05-10 13:12] LABS: ALKALINE PHOSPHATASE 53 U/L (45-117); ALT (GPT) 77 U/L (12-78); HDL CHOLESTEROL 65.5 MG/DL (40.0-60.0); LDL CHOLESTEROL 33 MG/DL (0-99); TOTAL BILIRUBIN ADULT 0.7 MG/DL (0.2-1.0)
[2017-05-10] MEDS: clonazePAM 1 MG TAB PO SCH ×3 (13:15→20:46)
[2017-05-10] MEDS: NICOTINE 21 MG/24 HR PATCH T-DERMAL SCH ×2 (13:15→14:00)
[2017-05-10 14:30] VITALS: BP 165/85; PULSE 87; RESP 18; TEMP 98; O2SAT 100
[2017-05-10] MEDS ORDERED: POTASSIUM CHLORIDE 10 MEQ CONTROLLED RELEASE TAB PO ONE (16:15)
[2017-05-10 16:27] LABS: HEMOGLOBIN A1b 0.9 %; HEMOGLOBIN Ao 86.7 %; HEMOGLOBIN F 0.7 %; HEMOGLOBIN P3 3.2 %
[2017-05-10 17:43] VITALS: BP 165/88; PULSE 98; RESP 19; TEMP 98.2; O2SAT 100
[2017-05-10] MEDS: REMOVE OLD NICOTINE PATCH T-DERMAL SCH (20:46)
[2017-05-11 02:42] VITALS: BP 114/56; PULSE 90; RESP 20; TEMP 98; O2SAT 97
[2017-05-11 06:03] VITALS: BP 163/85; PULSE 101; RESP 18; TEMP 97.4; O2SAT 98
[2017-05-11 09:12] LABS: AUTOMATED NEUTROPHIL # 6.8 TH/MM3 (1.8-7.7); BASOPHIL % 0.5 % (0.0-2.0); EOSINOPHIL # 0.1 TH/MM3 (0-0.4); EOSINOPHIL % 1.3 % (0.0-4.0); HEMATOCRIT 40.4 % (39.0-51.0); HEMO FLAGS DIFF FINAL; LYMPH % 19.3 % (9.0-44.0); LYMPHOCYTE # 1.8 TH/MM3 (1.0-4.8); MEAN CELL VOLUME 88.5 FL (80.0-100.0); MEAN CORPUSCULAR HEMOGLOBIN 30.5 PG (27.0-34.0); MEAN CORPUSCULAR HGB CONC 34.4 % (32.0-36.0); MONO % 5.4 % (0.0-8.0); NEUT % 73.5 % (16.0-70.0); PLATELET COUNT 220 TH/MM3 (150-450); RED BLOOD COUNT 4.57 MIL/MM3 (4.50-5.90); RED CELL DISTRIBUTION WIDTH 13.1 % (11.6-17.2); WHITE BLOOD COUNT 9.3 TH/MM3 (4.0-11.0)
[2017-05-11] MEDS: clonazePAM 1 MG TAB PO SCH ×2 (09:42→13:21)
[2017-05-11] MEDS: NICOTINE 21 MG/24 HR PATCH T-DERMAL SCH (09:42)
[2017-05-11 10:57] LABS: BICARBONATE 29.9 MEQ/L (21.0-32.0); MAGNESIUM 2.1 MG/DL (1.5-2.5); POTASSIUM 3.7 MEQ/L (3.5-5.1)
[2017-05-11] MEDS ORDERED: CLON1 PO (12:29)
--- NOTE | 2017-05-11 12:29 | HHI.DS ---
Psychiatry Discharge Summary Inpatient Psychiatric care?: Yes Advance Directive: No Reason Not Provided: DOES NOT HAVE Mental Health AdvanceDirective: No Health Care Proxy: No Admission Admission Date May 09, 2017 at 18:28 Admission Diagnosis: (1) Psychosis ICD Code: F29 (2) Polysubstance abuse ICD Code: F19.10 Brief History Mr. Byrd is a 27-year-old male with a reported history of panic/ anxiety and a chart history of substance use disorder who presents under a Ang act from [place] [employer] alleging that the patient is delusional and hallucinating. I also see what appears to be a Marchman act on the chart initiated by his mother and grandmother with a court date of 05/16. Reviewing the electronic medical record, I see that the patient was evaluated by Dr. Buchanan one week ago and determined to be chiefly substance use disordered at that time. Patient seen and examined with nurse. Chart reviewed. Case discussed with nursing staff on the inpatient unit. On my examination today, the patient presents with rambling speech and circumstantial thought processes. He was apparently quite religiously preoccupied overnight but has been medicated with benzodiazepines and antipsychotics since that time. He has stigmata of benzodiazepine withdrawal. He says initially that he has been without benzodiazepines for 3 days since his girlfriend allegedly stole his medications but then admits that buying smaller doses of benzodiazepines off the street. He tends to minimize the circumstances of his presentation here. He denies issues with mood and says that he is just "trying to keep it together." No depressive or hypomanic/manic symptoms noted. He denies audiovisual hallucinations but does appear to be a little internally preoccupied. No александр delusional material. Denies suicidal or homicidal ideation at this time. Remainder of the psychiatric ROS is negative. Given the patient's degree of psychiatric impairment I have placed a call to his mother. She notes that the patient has a history of substance use and was in the evident clinic up until a week ago. He also has been receiving large doses of benzodiazepines from his outpatient psychiatrist. Mother notes that the patient has been tearing up the house recently for unclear reasons and has caused $10,000 worth of damage. He has no history of psychotic illness per mother. Past psychiatric history: The patient reports a history of panic disorder and anxiety. He is treated by Dr. Dwyer. He says that he has not been psychiatrically admitted in over 5 years. He denies a history of suicide attempts. Family history: The patient alleges that his mother is an alcoholic. Chemical dependency history: The patient reports that he is using 6 mg of Xanax daily. He also smokes cannabis and has a history of synthetic cannabinoid use. As noted above, the patient reports that his last use of benzodiazepines was about 3 days ago although he has been using smaller quantities since then. He was also recently in a methadone maintenance program. E-FORCSE report reviewed , and I note patient has been receiving regular Rx for Xanax 6mg/day. Social history: Patient reports that he lives in his grandmother's home. He is single with no children. 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 He endorses a history of drug crime. No reported access to guns or firearms. Tobacco Use In Past 30 Days: 4 or Less Cigarettes/Day Alcohol Use: 2-4 Times Per Month Hospital Course Patient was admitted to a locked, inpatient psychiatric unit. Appropriate precautions were in place throughout patient's hospital stay. Patient was seen and examined daily on the unit by psychiatry and also visited by counselor. Patient's presenting psychiatric symptomatology was determined to be likely related to benzodiazepine withdrawal. He was started on Klonopin taper along with CIWA with Ativan for the management of this withdrawal with improvement in his presenting psychiatric symptomatology. He was also placed under a physician 's certificate for emergency admission to detoxification facility. The patient has been accepted by [facility] for transfer there today. On the day of discharge: Patient seen and examined. Chart reviewed. Case discussed with nursing staff. Patient is reportedly much improved since he was started on benzodiazepines for the management of his withdrawal. On my examination today, the patient seems more organized and relevant. Mood is stable. He denies any audiovisual hallucinations and I can elicit no delusional material. He denies any suicidal or homicidal ideation, intent or plan. He is awake and alert and oriented 3. Does continue to feel that he is subjectively withdrawing and has some stigmata of ongoing withdrawal symptoms, see below. No other physical complaints. There is no evidence of any unstable primary mood , anxiety or psychotic illness in this patient at this time. Patient will be transferred today to [facility] under the physician's certificate for further management of his benzodiazepine withdrawal. Results Blood Pressure 163 / 85 Vital Signs Date Time Temp Pulse Resp B/P Pulse Ox O2 Delivery O2 Flow Rate FiO2 05/11/17 06:03 97.4 101 18 163/85 98 05/09/17 14:03 Room Air Laboratory Tests Test 05/09/17 05/09/17 05/10/17 05/11/17 08:50 10:10 12:22 08:52 Red Blood Count 4.13 MIL/MM3 (4.50-5.90) Hemoglobin 12.4 GM/DL (13.0-17.0) Hematocrit 36.4 % (39.0-51.0) Potassium Level 2.9 MEQ/L 3.1 MEQ/L (3.5-5.1) (3.5-5.1) Random Glucose 108 MG/DL (74-106) Aspartate Amino Transf 81 U/L (15-37) 91 U/L (15-37) (AST/SGOT) Urine Benzodiazepines Screen POS (NEG) Urine Cannabinoids Screen POS (NEG) Blood Urea Nitrogen 5 MG/DL (7-18) 4 MG/DL (7-18) Triglycerides Level 36 MG/DL (42-150) Cholesterol Level 106 MG/DL (120-200) HDL Cholesterol 65.5 MG/DL (40.0-60.0) Neutrophils (%) (Auto) 73.5 % (16.0-70.0) Sodium Level 146 MEQ/L (136-145) Chloride Level 108 MEQ/L (98-107) Laboratory Results Test 05/10/17 12:22 Hemoglobin A1c 5.3 % (4.3-6.0) Triglycerides Level 36 MG/DL (42-150) Cholesterol Level 106 MG/DL (120-200) LDL Cholesterol 33 MG/DL (0-99) HDL Cholesterol 65.5 MG/DL (40.0-60.0) Summary of Procedures None done Imaging None done Pending results at discharge: No Medications # of Antipsychotic meds at D/C: 0 Approp Antipsych med options 1 - Minimum of three failed multiple trials of monotherapy. 2 - Documented plan to taper to monotherapy due to previous use of multiple meds OR cross-taper in progress at D/C. 3 - Documentation of augmentation of Clozapine. 4 - Justification other than those listed in allowable values 1-3, document here : Discharge Discharge Date: May 11, 2017 Discharge Diagnosis: (1) Benzodiazepine withdrawal with perceptual disturbance Diagnosis: Principal ICD Code: F13.232 (2) Polysubstance abuse Diagnosis: Secondary ICD Code: F19.10 Mental Status Exam at Disch Patient is in hospital gown. He is fairly well groomed and maintaining basic hygiene. He is awake and alert and oriented to person, place and date. He remains somewhat diaphoretic and mildly tremulous. No other motoric abnormalities noted. No other signs of withdrawal noted. Speech is within normal limits for rate, tone and volume. Mood is fair and affect is blunted. Thought process much more linear and logical today versus yesterday. No александр delusional material. Denies audiovisual hallucinations. Denies suicidal or homicidal ideation, intent or plan. Insight and judgment are poor. Pt Condition on Discharge: Stable Discharge Disposition: Disch to Another Hospital Discharge Instructions Diet Instructions: As Tolerated, No Restrictions Activities you can perform: Weight Bearing as Magali Scheduled Appointment: transfer to [facility] for detox New Medications: Clonazepam (Klonopin) 1 Mg Tab 1 MG PO QID Klonopin taper Days 0 Ref 0 TAB Discontinued Medications: Alprazolam (Alprazolam) 2 Mg Tab 2 MG PO Q8H PRN ANXIETY TAB Bupropion HCl ER 24 HR (Wellbutrin Xl 24 HR) 150 Mg Tab 150 MG PO DAILY Control Depression Ref 0 TAB Mirtazapine (Remeron) 30 Mg Tab 30 MG PO HS Depression Control #30 Ref 0 TAB Discharge Time <= 30 minutes Discharge/Advance Care Plan Health Problems: (1) Psychosis (2) Polysubstance abuse Goals to promote your health * To prevent worsening of your condition and complications * To maintain your health at the optimal level Directions to meet your goals Take your medications as prescribed Follow your dietary instruction Follow activity as directed Keep your appointments as scheduled Take your immunizations and boosters as scheduled If your symptoms worsen call your PCP, if no PCP go to Urgent Care Center or Emergency Room For 11/06 questions related to your inpatient stay or results of tests pending at discharge, please contact Dr. Tahir Ness at Smoking is Dangerous to Your Health. Avoid second hand smoking Problem Qualifiers (1) Psychosis: Qualified Code: F23 - Brief psychotic disorder Tahir Ness MD May 11, 2017 12:29
== END 2017-05-11 14:40 | disposition short-term general hospital (02) | DRG 897 ==
LOC: NEPC 08:26 → NEDA 18:28 → H270 18:43
PROVIDERS: ADMIT Psychiatry & Neurology Psychiatry; ATTEND Psychiatry & Neurology Psychiatry
DX: F13.239 Sedative, hypnotic or anxiolytic dependence with withdrawal, unspecified (principal); E87.6 Hypokalemia; F12.90 Cannabis use, unspecified, uncomplicated
CPT/HCPCS: 80048; 80053; 80061; 80307; 83036; 83735; 85025; 96372; J1630; J2060; Q0163